=== PATIENT | male | born 1990 | race Caucasian/White ===

== ENCOUNTER 2025-03-23 16:45 | Emergency (ER) | payer OTHER ==
[2025-03-23 16:50] VITALS: TEMP 97.5
--- NOTE | 2025-03-23 17:47 | XR ---
EXAMINATION TYPE: XR knee complete LT DATE OF EXAM: 03/23/2025 5:33 PM INDICATION: Patient age:Male; 34 years old; Reason for study: Left knee pain; PHH. pain COMPARISON: None. TECHNIQUE: The Left knee(s) was examined in Frontal, lateral and oblique projections. FINDINGS: No evidence of any acute osseous pathology, soft tissue swelling, or joint effusion is no connor. IMPRESSION: No acute osseous pathology. [facility], , 03/23/2025 5:45 PM
--- NOTE | 2025-03-23 17:58 | ED ---
Extremity Problem HPI - General Chief complaint: Extremity Problem,Nontraumatic Stated complaint: Left Knee Injury Time Seen by Provider: 03/23/25 16:55 Source: patient, RN notes reviewed Mode of arrival: ambulatory Limitations: no limitations - History of Present Illness Initial comments: 34-year-old male presented to ER for evaluation of left knee injury. Patient reports last night he was dancing and attempted to knee slide across the floor. He states when landing on his left knee he felt a "pop" and believes he twisted his knee. He states since then he has been having severe pain limiting his ability to ambulate on left knee. He states he is only able to toe-touch bear weight. He reports most of his pain is on the medial aspect he also notes edema to that area. He denies paresthesias. He has not taken anything for pain at this time. Patient denies any other injuries or complaints. - Related Data Allergies Allergy/AdvReac Type Severity Reaction Status Date / Time No Known Allergies Allergy Verified 03/23/25 16:49 Review of Systems ROS Statement: Those systems with pertinent positive or pertinent negative responses have been documented in the HPI. ROS Other: All systems not noted in ROS Statement are negative. Past Medical History Past Medical History: No Reported History History of Any Multi-Drug Resistant Organisms: None Reported Past Surgical History: No Surgical Hx Reported Past Psychological History: No Psychological Hx Reported Smoking Status: Never smoker Past Alcohol Use History: None Reported Past Drug Use History: None Reported General Exam Limitations: no limitations General appearance: alert, in no apparent distress Respiratory exam: Present: normal lung sounds bilaterally. Absent: respiratory distress, wheezes, rales, rhonchi, stridor Cardiovascular Exam: Present: regular rate, normal rhythm, normal heart sounds. Absent: systolic murmur, diastolic murmur, rubs, gallop, clicks Extremities exam: Present: tenderness (Medial left knee overlying edema), normal capillary refill (2+ left DP/PT pulses.), other (Limited full active range of motion given swelling and pain) Neurological exam: Present: alert, oriented X3, CN II-XII intact Skin exam: Present: warm, dry, intact, normal color. Absent: rash Course Vital Signs 03/23/25 03/23/25 16:45 18:21 Temperature 97.5 F L Pulse Rate 72 79 Respiratory 16 18 Rate Blood Pressure 136/85 129/60 O2 Sat by Pulse 98 100 Oximetry Medical Decision Making - Medical Decision Making Was pt. sent in by a medical professional or institution (, LILA, NEUROLOGY DIRECTOR, urgent care, hospital, or residential...) When possible be specific @ -No Did you speak to anyone other than the patient for history (EMS, parent, family, police, friend...)? What history was obtained from this source @ -No Did you review nursing and triage notes (agree or disagree)? Why? @ -I reviewed and agree with nursing and triage notes Were old charts reviewed (outside hosp., previous admission, EMS record, old EKG, old radiological studies, urgent care reports/EKG's, residential records)? Report findings @ -No old charts were reviewed Differential Diagnosis (chest pain, altered mental status, abdominal pain women, abdominal pain men, vaginal bleeding, weakness, fever, dyspnea, syncope, headache, dizziness, GI bleed, back pain, seizure, CVA, palpatations, mental health, musculoskeletal)? @ -Differential Musculoskeletal: Muscular strain, contusion, ligament sprain, fracture, arthritis, septic arthritis, bursitis, cellulitis, muscle spasm, nerve compression, DVT, arterial occlusion, herpes zoster, electrolyte abnormality, tumor.... This is not meant to be in all inclusive list EKG interpreted by me (3pts min.). @ -None done X-rays interpreted by me (1pt min.). @ -Left knee x-ray interpreted by me negative for acute fractures or dislocations. CT interpreted by me (1pt min.). @ -None done U/S interpreted by me (1pt. min.). @ -None done What testing was considered but not performed or refused? (CT, X-rays, U/S, labs)? Why? @ -None What meds were considered but not given or refused? Why? @ -None Did you discuss the management of the patient with other professionals (professionals i.e. LILA Hunt, NEUROLOGY DIRECTOR, lab, RT, psych nurse, manager social media, sports anchor, teacher, custody officer, case specialist)? Give summary @ -No Was smoking cessation discussed for >3mins.? @ -No Was critical care preformed (if so, how long)? @ -No Were there social determinants of health that impacted care today? How? (Homelessness, low income, unemployed, alcoholism, drug addiction, transportation, low edu. Level, literacy, decrease access to med. care, [place] [facility], rehab)? @ -Yes, patient is currently visiting here from [place]. This may limit his ability to follow-up closely with orthopedics outpatient. Was there de-escalation of care discussed even if they declined (Discuss DNR or withdrawal of care, Hospice)? DNR status @ -No What co-morbidities impacted this encounter? (DM, HTN, Smoking, COPD, CAD, Cancer, CVA, ARF, Chemo, Hep., AIDS, mental health diagnosis, sleep apnea, morbid obesity)? @ -None Was patient admitted / discharged? Hospital course, mention meds given and route, prescriptions, significant lab abnormalities, going to [place] and other pertinent info. @-Discharge. 34-year male presented to ER for evaluation of left knee injury. Vital signs stable. Patient is neurovascular intact. There is tenderness and edema noted to left medial knee. No overlying skin changes. X-rays negative for fractures or dislocations. Injury and pain believed to be related to soft tissue injury fracture patient will be placed in a knee immobilizer and instructed to follow-up with orthopedics, referral given. Crutches also provided. Patient provided with p.o. ibuprofen in the emergency department for pain control. I advised [id number] ibuprofen and Tylenol for pain control along with rest ice, elevation and compression. Strict return parameters d iscussed. Patient discharged in stable condition. Patient verbally expressed understand agree with care plan. Case discussed with ED attending, . Undiagnosed new problem with uncertain prognosis? @ -No Drug Therapy requiring intensive monitoring for toxicity (Heparin, Nitro, Insulin, Cardizem)? @ -No Were any procedures done? @ -No Diagnosis/symptom? @ -Knee sprain Acute, or Chronic, or Acute on Chronic? @ -Acute Uncomplicated (without systemic symptoms) or Complicated (systemic symptoms)? @ -Uncomplicated Side effects of treatment? @ -No Exacerbation, Progression, or Severe Exacerbation? @ -No Poses a threat to life or bodily function? How? (Chest pain, [place], [place], pneumonia, PE, COPD, DKA, ARF, appy, cholecystitis, CVA, Diverticulitis, Homicidal, Suicidal, threat to staff... and all critical care pts) @ -No Disposition Clinical Impression: Knee sprain Disposition: HOME SELF-CARE Condition: Stable Instructions (If sedation given, give patient instructions): Knee Sprain (DC), Knee Immobilizer (ED) Additional Instructions: Follow-up with orthopedics. You may take [id number] ibuprofen and Tylenol for pain control. Return to the ER for any new or worsening concerns. Is patient prescribed a controlled substance at d/c from ED?: No Referrals: None,Stated [Primary Care Provider] - 1-2 days Marco Antonio Turner MD [STAFF PHYSICIAN] - 1-2 days Time of Disposition: 18:06
[2025-03-23 18:23] VITALS: BP 129/60; PULSE 79; RESP 18
[2025-03-23] MEDS: IBUPROFEN 600 MG TAB PO STA (18:23)
== END 2025-03-23 18:25 | disposition home or self-care (01) ==
LOC: EC 16:45
DX: S83.412A Sprain of medial collateral ligament of left knee, initial encounter (principal); X50.9XXA Other and unspecified overexertion or strenuous movements or postures, initial encounter; Y93.41 Activity, dancing
CPT/HCPCS: 99283